=== PATIENT | female | born 1965 | race African-American/Black ===

== ENCOUNTER 2019-04-28 01:40 | Observation (INO) | payer BC ==
[~2019-04-28] VITALS: Ht 144.8 cm; Wt 62.8 kg
[2019-04-28] MEDS ORDERED: METHYLPREDNISOLONE SOD SUCC 125 MG/2ML VIAL IV STA (01:58)
[2019-04-28] MEDS ORDERED: EPINEPHRINE 0.3 MG/0.3 ML PEN.INJCTR SC STA (01:58)
[2019-04-28] MEDS ORDERED: FAMOTIDINE 20 MG/2 ML VIAL IV STA (01:58)
[2019-04-28] MEDS ORDERED: DIPHENHYDRAMINE HCL INJ 50 MG/ML VIAL IV ONE (02:00)
[2019-04-28] MEDS ORDERED: EPINEPHRINE HCL 1:1000 1ML 1 MG/ML AMP ONE (02:23)
[2019-04-28] MEDS ORDERED: METHYLPREDNISOLONE SOD SUCC 125 MG/2ML VIAL ONE (02:24)
--- NOTE | 2019-04-28 03:10 | Diagnostic Imaging Report ---
EXAMINATION: CXR 2 VIEW - HOPD INDICATION: Swollen face. COMPARISON: None FINDINGS: TUBES and LINES: None. LUNGS: Lungs are not well inflated. There is no evidence of pneumonia or pulmonary edema. PLEURA: No pleural effusion or pneumothorax. HEART AND MEDIASTINUM: The cardiomediastinal silhouette is unremarkable. BONES AND SOFT TISSUES: No acute osseous lesion. Soft tissues are unremarkable. UPPER ABDOMEN: No free air under the diaphragm. IMPRESSION: No acute radiographic abnormality. Signed by: Dr. Huma Jane MD on 04/28/2019 3:07 AM
[2019-04-28] MEDS ORDERED: SODIUM CHLORIDE FLUSH 10 ML SYR INJ PRN (03:30)
--- NOTE | 2019-04-28 04:00 | NUR ---
[facility] NOTIFIED OF TRANSFER ETA OF 1 HOUR GIVEN
--- OUTSIDE RECORDS SUMMARY | 2019-04-28 04:26 | XMS REPORT ---
Author Author [facility] Address Unknown Phone Unavailable Care Team Providers Care Sales Administration Manager Name Role Phone GOLDEN PARKS Unavailable Unavailable Problems This patient has no known problems. Allergies, Adverse Reactions, Alerts This patient has no known allergies or adverse reactions. Medications This patient has no known medications. Results Test Description Test Time Test Comments Text Results Atomic Results Result Comments CXR 2 VIEW - HOPD 2019-04-28 03:06:00 [place] [address] Patient Name: DARIUS PARHAM MR #: [id number] : 1965 Age/Sex: 54/F Req #: [id number] Adm Physician: Ordered by: GOLDEN PARKS MD Report #: [id number] Location: [facility] Room/Bed: Procedure: [id number] HOPD/CXR 2 VIEW - HOPD Exam Date: Exam Time: REPORT STATUS: Signed EXAMINATION: CXR 2 VIEW - HOPD INDICATION: Swollen face. COMPARISON: None FINDINGS: TUBES and LINES: None. LUNGS: Lungs are not well inflated. There is no evidence of pneumonia or pulmonary edema. PLEURA: No pleural effusion or pneumothorax. HEART AND MEDIASTINUM: The cardiomediastinal silhouette is unremarkable. BONES AND SOFT TISSUES: No acute osseous lesion. Soft tissues are unremarkable. UPPER ABDOMEN: No free air under the diaphragm. IMPRESSION: No acute radiographic abnormality. Signed by: Dr. Kelly Dao MD on 04/28/2019 3:07 AM Dictated By: KELLY DAO MD 6 Transcribed By: EDU on 04/28/19306 COPY TO: GOLDEN PARKS MD
--- NOTE | 2019-04-28 04:50 | NUR ---
updated eta with [facility] of 20 more mintues
--- NOTE | 2019-04-28 05:22 | NUR ---
swelling to top lip is improved, some swelling to right hand continues
--- NOTE | 2019-04-28 05:24 | NUR ---
patients sister just informed this RN that pt has not taken her lisinopril in over a week and she was given another persons medication, pt confirmed this. pt sister called family member and family member stated it was lisinopril 10mg and that they had cut it in half and gave to patient. Dr Flores to be notified of this. Addendum: 04/28/19 at 0528 by MADONNA explained to patient and family the risk factors of taking other medication, pt verbalized understanding as well as family.
[2019-04-28 06:00] VITALS: BP 124/72
[2019-04-28] MEDS ORDERED: DIPHENHYDRAMINE HCL INJ 50 MG/ML VIAL IV PRN (06:00)
--- NOTE | 2019-04-28 06:05 | NUR ---
PATIENT RECEIVED FROM [facility]. PATIENT IS AAOX4. PATIENT HAS SWOLLEN UPPER LIP, RIGHT HAND AND LITO LEG. PATIENT C/O PAIN TO LEFT LEG. DENIES OF ANY SOB AND DYSPHAGIA. TELE IN PLACE. ORIENTED TO ROOM. SISTER AT BED SIDE. CALL LIGHT WITHIN REACH. BED LOW/LOCKED. CONTINUE TO MONITOR CLOSELY
[2019-04-28 06:39] VITALS: BP 124/72
[2019-04-28] MEDS ORDERED: LISINOPRIL10 MG PO (06:39)
[2019-04-28 07:07] LABS: CREATINE KINASE 38 IU/L (29-168)
[2019-04-28 07:58] VITALS: BP 114/71
[2019-04-28 08:00] VITALS: BP 114/71
[2019-04-28] MEDS ORDERED: METHYLPREDNISOLONE SOD SUCC 125 MG/2ML VIAL IV SCH (08:00)
[2019-04-28 08:05] LABS: BASOPHILS % 0.1 % (0.0-1.0); EOSINOPHILS # (AUTO) 0.1 (0.0-0.4); EOSINOPHILS % 0.4 % (0.0-6.0); HEMATOCRIT 36.6 % (34.2-44.1); LYMPHOCYTES # (AUTO) 0.4 (1.0-3.2); LYMPHOCYTES % 1.8 % (18.0-39.1); MEAN CORPUSCULAR HEMOGLOBIN 23.4 pg (28-32); MEAN CORPUSCULAR HGB CONC 32.8 g/dL (31-35); MEAN CORPUSCULAR VOLUME 71.3 fL (81-99); MONOCYTES # (AUTO) 0.1 (0.2-0.8); MONOCYTES % 0.3 % (4.4-11.3); NEUTROPHILS # (AUTO) 19.7 (2.1-6.9); NEUTROPHILS % 96.8 % (38.7-80.0); PLATELET COUNT 342 x10e3/uL (140-360); RED BLOOD COUNT 5.13 x10e6/uL (3.6-5.1); RED CELL DISTRIBUTION WIDTH 13.3 % (11.7-14.4)
[2019-04-28 08:13] LABS: ANION GAP 11.2 mmol/L (8-16); BLOOD UREA NITROGEN 13 mg/dL (7-26); BUN/CREATININE RATIO 14 (6-25); CALCIUM 9.4 mg/dL (8.4-10.2); CARBON DIOXIDE 23 mmol/L (22-29); CHLORIDE 105 mmol/L (98-107); EST GLOMERULAR FILTRATION RATE > 60 ML/MIN (60-); GLUCOSE 141 mg/dL (74-118); POTASSIUM 3.2 mmol/L (3.5-5.1); SODIUM 136 mmol/L (136-145)
[2019-04-28] MEDS ORDERED: NORVASC10 MG PO (08:13)
[2019-04-28] MEDS ORDERED: DIPHENHYDRAMINE25 M2 PO (08:13)
[2019-04-28 08:44] LABS: LYMPHOCYTES % (MANUAL) 3 % (19-48); MONOCYTES % (MANUAL) 1 % (3.4-9.0); NEUTROPHILS % (MANUAL) 96 % (40-74)
[2019-04-28 08:45] LABS: ANISOCYTOSIS MODERATE; HYPOCHROMASIA MODERATE; MICROCYTOSIS MODERATE; POIKILOCYTOSIS SLIGHT; RBC MORPHOLOGY COMMENT ABNORMAL; SCHISTOCYTES RARE
[2019-04-28 08:46] LABS: HELMET CELLS RARE; PLATELET ESTIMATE ADEQUATE
[2019-04-28 08:47] LABS: PLATELET MORPHOLOGY COMMENT NORMAL
[2019-04-28] MEDS ORDERED: FAMOTIDINE 20 MG/2 ML VIAL IV SCH (09:00)
[2019-04-28] MEDS ORDERED: AMLODIPINE BESYLATE 10 MG TAB PO SCH (09:00)
[2019-04-28 11:40] VITALS: BP 115/66
--- NOTE | 2019-04-28 12:47 | Diagnostic Imaging Report ---
CT of the chest, PE protocol, with contrast, 04/28/2019. History: Elevated D dimer. Comparison: Chest x-ray from earlier today. Technique: Multidetector thin collimation CT scanning of the chest was performed from the level of the apices to the upper abdomen during the pulmonary arterial phase, after intravenous administration of contrast. Coronal and sagittal MIP reformations were obtained. RADIATION DOSE: Total DLP: 388 mGy*cm Dose modulation, iterative reconstruction, and/or weight based adjustment of the mA/kV was utilized to reduce the radiation dose to as low as reasonably achievable. Discussion: Chest: The pulmonary arteries are well-opacified without evidence of filling defect or vessel cut off. The main pulmonary artery is normal in size measuring 2.2 cm in diameter. The heart and aorta are normal in size. Thyroid is unremarkable. There is no axillary or mediastinal adenopathy. No evidence of consolidation, mass, or effusion. Limited evaluation of the upper abdomen shows normal bilateral adrenal glands. Bones and soft tissues: No acute abnormality. IMPRESSION: No evidence of acute pulmonary embolus or pulmonary abnormality. Signed by: oGnzales Vang on 04/28/2019 12:43 PM
--- NOTE | 2019-04-28 13:45 | NUR ---
patient alert and oriented with family at bedside. discharge instructions given at this time, patient verbalized understanding. IV discontinued, catheter in tact and small dressing applied. patient refused wheelchair assistance but will ambulate with assist to personal auto for family to drive home.
[2019-04-28] MEDS ORDERED: IOPAMIDOL 370 MG/ML 200 ML INFUS..BTL INJ ONE (14:35)
[2019-04-28] MEDS ORDERED: SODIUM CHLORIDE 0.9% 50ML 50 ML ONE (14:35)
--- NOTE | 2019-04-29 13:04 | Discharge Summary ---
ADMISSION DIAGNOSES: 1. Angioedema. 2. Hypertension. 3. Elevated D-dimer. DISCHARGE DIAGNOSES: 1. Angioedema. 2. Hypertension. 3. Elevated D-dimer. 4. Rule out deep vein thrombosis. 5. Rule out pulmonary embolism. HISTORY: Hypertension. SURGICAL HISTORY: None. FAMILY HISTORY: Noncontributory. SOCIAL HISTORY: Noncontributory. HOSPITAL COURSE: A 54-year-old female admits with complaints of lip and facial swelling after taking her friend's lisinopril tablet. She denies dysphagia and trouble breathing. She also complains of right lower extremity pain intermittently for the last few months. Symptoms worsened with walking. On admission, the patient was given Benadryl and IV steroids, so her lisinopril was stopped and she was started on Norvasc. Her D-dimer was elevated at the outpatient ER, so she had a CTA of the chest, which was negative and a right lower extremity venous Doppler, which was also negative. Chest x-ray was negative. The patient will discharge home with prescriptions for Norvasc and Benadryl p.r.n. The patient and family understand discharge instructions and agrees to plan. Vital signs stable. The patient is afebrile. Dictated by Debo Mehta NP MD YENI Dominguez/PORSCHE /[id number]
== END 2019-04-28 13:45 | disposition home or self-care (01) ==
LOC: FSED 01:40 → ERHOLD 03:26 → MED/SURG2 05:54
PROVIDERS: ADMIT Internal Medicine; ATTEND Internal Medicine
DX: T78.3XXA Angioneurotic edema, initial encounter (principal); I10 Essential (primary) hypertension; R13.10 Dysphagia, unspecified
CPT/HCPCS: 36415; 71046; 71260; 80048; 80053; 81003; 82550; 82553; 83880; 84484; 85025; 85379; 93005; 93971; 96374; 96375; 96376; 99284; G0378; J0171; J1200; J2930; Q9967

== ENCOUNTER 2020-09-10 17:39 | Emergency (ER) | payer SELFPAY ==
[~2020-09-10] VITALS: Ht 134.6 cm; Wt 58.7 kg
[~2020-09-10 17:39] MED LIST: DIPHENHYDRAMINE25 M2 PO; LISINOPRIL10 MG PO; NORVASC10 MG PO
[2020-09-10] MEDS ORDERED: NAPROSYN500 MG PO (20:35)
[2020-09-10 20:51] VITALS: BP 118/91
== END 2020-09-10 20:48 | disposition home or self-care (01) ==
LOC: FSED 18:10
DX: M79.662 Pain in left lower leg (principal); I10 Essential (primary) hypertension; M19.90 Unspecified osteoarthritis, unspecified site
CPT/HCPCS: 93971; 99283

== ENCOUNTER 2021-07-01 12:29 | Emergency (ER) | payer BC, OTHER ==
[~2021-07-01] VITALS: Ht 144.8 cm; Wt 53.7 kg
[~2021-07-01 12:29] MED LIST changes: +NAPROSYN500 MG PO
== END 2021-07-01 14:04 | disposition home or self-care (01) ==
LOC: FSED 12:46
DX: M79.661 Pain in right lower leg (principal); I80.3 Phlebitis and thrombophlebitis of lower extremities, unspecified; I10 Essential (primary) hypertension
CPT/HCPCS: 99282

== ENCOUNTER 2022-10-24 16:00 | Emergency (ER) | payer OTHER ==
[~2022-10-24] VITALS: Ht 144.8 cm; Wt 54.4 kg
[2022-10-24 16:09] VITALS: O2SAT 100
[2022-10-24] MEDS ORDERED: CYCLOBENZAPRINE5 MG PO (16:21)
== END 2022-10-24 16:36 | disposition home or self-care (01) ==
LOC: FSED 16:03
DX: M79.662 Pain in left lower leg (principal); M79.661 Pain in right lower leg; M79.18 Myalgia, other site; I10 Essential (primary) hypertension
CPT/HCPCS: 99282

== ENCOUNTER 2022-12-10 13:37 | Emergency (ER) | payer OTHER ==
[~2022-12-10] VITALS: Ht 144.8 cm; Wt 54.1 kg
[~2022-12-10 13:37] MED LIST changes: +CYCLOBENZAPRINE5 MG PO
[2022-12-10] MEDS ORDERED: KETOROLAC TROMETHAMINE 60 MG/2 ML VIAL ONE (13:57)
[2022-12-10] MEDS ORDERED: KETOROLAC TROMETHAMINE 60 MG/2 ML VIAL IM ONE (14:00)
[2022-12-10] MEDS ORDERED: ULTRAM 50MG50 MG PO (14:35)
[2022-12-10 14:41] VITALS: O2SAT 98
== END 2022-12-10 14:41 | disposition home or self-care (01) ==
LOC: FSED 13:41
DX: M79.605 Pain in left leg (principal); M79.604 Pain in right leg; I10 Essential (primary) hypertension
CPT/HCPCS: 36415; 73590 ×2; 82948; 96372; 99283; J1885